=== PATIENT | female | born 1940 | race Caucasian/White ===

== ENCOUNTER → 2018-02-11 | Outpatient (CLI) | payer MEDICARE ==
--- NOTE | 2018-02-11 11:19 | BD ---
EXAMINATION TYPE: Axial Bone Density DATE OF EXAM: 02/11/2018 CLINICAL HISTORY: Height: 61 Weight: 180 FRAX RISK QUESTIONS: Alcohol (3 or more units per day): no Family History (Parent hip fracture): mother did not break hip...no info about father Glucocorticoids (More than 3mos): no (Ex: prednisone, prednisolone, methylprednisolone, dexamethasone, and hydrocortisone). History of Fracture in Adulthood: no Secondary Osteoporosis: 1. Type 1 Diabetes: no 2. Hyperthyroidism: no 3. Menopause before 45: no 4. Malnutrition: no 5. Chronic liver disease: no Rheumatoid Arthritis: no Current Tobacco Use: no RISK FACTORS HISTORY OF: Family History of Osteoporosis: unsure Active: yes Diet low in dairy products/other sources of calcium: no Postmenopausal woman: yes Take estrogen and/or progesterone medications: not now How long: about 15 years Lost more than 2 inches in height since high school: no Frequent falls: no Poor Health: no Hyperparathyroidism: no Adrenal Insufficiency: no MEDICATIONS: Prednisone or other steroids: no Thyroid Medications: no Osteoporosis Medications: no Additional Medications: Vitamin D3, Gemfibrozil, Zyrtec, Aspirin, CoQ10, Areds, Pravastatin, Losartan , Omeprazole, Spironolactone, Fish Oil Calcium Additional History: EXAM MEASUREMENTS: Bone mineral densitometry was performed using the Enomaly System. Bone mineral density as measured about the Lumbar spine is: ----- L1-L4(G/cm2): 1.419 T Score Values are as follows: ----- L2: 2.1 ----- L3: 2.1 ----- L4: 2.4 ----- L1-L4: 2.0 Bone mineral density has: Increased 10.3% since study of: 04/18/2009 Bone mineral density about the R hip (g/cm2): 0.852 Bone mineral density about the L hip (g/cm2): 0.803 T Score values are as follows: -----R Neck: -1.3 -----L Neck: -1.7 -----R Total: -0.6 -----L Total: -0.9 Bone mineral density has: Decreased -1.3% since study of: 04/18/2009 IMPRESSION: Osteopenia (T Score between -2.5 and -1) felt present femoral neck level in both hips. Bone density f elt falsely elevated in the low back due to reactive sclerosis from underlying scoliosis. There is slightly increased risk of fracture and the patient may be considered for treatment. Re-Screen 2-5 years. NOTE: T-SCORE=SD OF THE YOUNG ADULT MEAN.
--- NOTE | 2018-02-11 11:45 | MM ---
Reason for exam: screening (asymptomatic). Last mammogram was performed 1 year and 7 months ago. History: Patient is postmenopausal. Benign left breast needle localization of both breasts, September 14, 2012. Benign left mammotome panel of the left breast, August 03, 2012. Benign right US cyst aspiration of the right breast, May 02, 2009. Took estrogen for 15 years beginning at age 50. Took progesterone for 15 years beginning at age 50. Physical Findings: A clinical breast exam by your physician is recommended on an annual basis and results should be correlated with mammographic findings. MG 3D Screening Mammo W/Cad Bilateral CC and MLO view(s) were taken. Prior study comparison: July 24, 2016, bilateral MG 3d screening mammo w/cad. July 23, 2015, bilateral MG screening mammo w CAD. There are scattered fibroglandular densities. There are benign appearing small round oval circumscribed masses bilaterally waxing and waning over priors most compatible with small cysts. Benign calcifications bilaterally. No suspicious abnormality. ASSESSMENT: Benign, BI-RAD 2 RECOMMENDATION: Routine screening mammogram of both breasts in 1 year.
== END ==
LOC: RADMAMWWP 07:34
PROVIDERS: ATTEND Family Medicine
DX: Z12.31 Encounter for screening mammogram for malignant neoplasm of breast (principal); M85.88 Other specified disorders of bone density and structure, other site
CPT/HCPCS: 77063; 77067; 77080

== ENCOUNTER 2018-07-29 09:17 | Day surgery (SDC) | payer MEDICARE ==
[2018-07-21 09:57] VITALS: BMI 35.5
[~2018-07-29 09:17] MED LIST: ALPRAZolam 0.25 MG TAB PO PRN; ALPRAZolam 0.5 MG TAB PO PRN; ASPIRIN 325 MG TAB PO ONE; ATORVASTATIN 80 MG TAB PO ONE; NITROGLYCERIN SL TABS 0.4 MG TAB SUBLINGUAL PRN; SODIUM CHLORIDE 0.9% 1,000 ML in EMPTY BAG 1 BAG IV ONE
[2018-07-29 10:17] VITALS: PULSE 7; TEMP 97.4
[2018-07-29 10:17] LABS: Basophils # (A) 0.1 k/uL (0-0.2); Basophils % (A) 1 %; Eosinophils # (A) 0.3 k/uL (0-0.7); Eosinophils % (A) 3 %; HCT 43.6 % (34.0-46.0); Lymphocytes # (A) 1.9 k/uL (1.0-4.8); Lymphocytes % (A) 22 %; MCH 28.2 pg (25.0-35.0); MCV 87.9 fL (80.0-100.0); Mean Platelet Volume 6.9; Monocytes # (A) 0.6 k/uL (0-1.0); Monocytes % (A) 7 %; Neutrophils # (A) 5.7 k/uL (1.3-7.7); Neutrophils % (A) 65 %; Platelet Count 287 k/uL (150-450); RBC 4.96 m/uL (3.80-5.40); RDW 13.1 % (11.5-15.5); WBC 8.7 k/uL (3.8-10.6)
[2018-07-29] MEDS ORDERED: fentaNYL (PF) 50 MCG/ML 2 ML AMP ONE (10:18)
[2018-07-29] MEDS ORDERED: LIDOCAINE 1% INJ 10MG/ML (20 ML MDV) ONE (10:19)
[2018-07-29 10:26] LABS: Calcium 9.8 mg/dL (8.4-10.2); Potassium 4.8 mmol/L (3.5-5.1)
[2018-07-29] MEDS ORDERED: SODIUM CHLORIDE 0.9% 1,000 ML IV ONE (10:31)
[2018-07-29] MEDS ORDERED: fentaNYL (PF) 50 MCG/ML 2 ML AMP IV ONE (10:44)
[2018-07-29] MEDS ORDERED: LIDOCAINE 1% INJ 10MG/ML (20 ML MDV) SQ ONE (10:48)
[2018-07-29] MEDS ORDERED: HEPARIN SODIUM 1,000 UN/ML (10ML VL) IV ONE (10:57)
[2018-07-29] MEDS ORDERED: HEPARIN SODIUM 1,000 UN/ML (10ML VL) ONE (11:05)
[2018-07-29] MEDS ORDERED: ADENOSINE 90 MG in SODIUM CHLORIDE 0.9% 60 ML IVP ONE (11:13)
[2018-07-29] MEDS ORDERED: IOPAMIDOL-370 100ML BTL INJ ONE (11:18)
[2018-07-29] MEDS ORDERED: IOPAMIDOL-370 125ML BTL INJ ONE (11:18)
[2018-07-29] MEDS ORDERED: RX INFO: IV CONTRAST WAS GIVEN 1 EACH MISC MISCELLANE PRN (11:37)
[2018-07-29] MEDS ORDERED: SODIUM CHLORIDE 0.9% 1,000 ML IV SCH (11:45)
[2018-07-29 13:37] LABS: Albumin 4.1 g/dL (3.5-5.0); Total Bilirubin 0.6 mg/dL (0.2-1.3); Total Protein 7.5 g/dL (6.3-8.2)
--- NOTE | 2018-07-29 15:15 | CC ---
CARDIAC CATHETERIZATION REPORT Mrs. Delvalle is a 77-year-old female with history of coronary artery disease in 2009, history of hypertension, hyperlipidemia, who is followed by Dr. Mathew, recently has been complaining of dyspnea on exertion, underwent myocardial perfusion imaging that revealed evidence of inducible ischemia in inferoseptal wall. Because of her symptoms, recommendation made regarding cardiac catheterization. The procedures, risks and complications were discussed with the patient who is in full understanding and agreement. PROCEDURE: Patient was brought to the [facility] in a fasting semi-sedated state after receiving fentanyl and Benadryl and achieving moderate conscious sedated state. Using Xylocaine anesthesia and Seldinger technique, a 6-Kazakh sheath was introduced in the right femoral artery. Selective right and left angiography performed with 6-Kazakh 4 bend right and left Víctor catheter, multiple views of the coronary artery including hemiaxial views obtained. Following that, a 6-Kazakh tight pigtail catheter was introduced in the left ventricle and pressures were calculated. Following that, a 6- Kazakh FL4 guiding catheter was introduced into the system and after cannulating the left main, a Doppler flow wire was introduced and positioned in the left circumflex and fractional flow reserve was calculated after infusion of IV adenosine per protocol as well as IFR was calculated. At the end of the procedure, catheter and sheaths were removed. Hemostasis was obtained with deployment of an Angio-Seal. There was no immediate complication. Patient is returned to her room in stable condition. Of note, the patient received 5000 units of intravenous heparin. FINDINGS: FLUOROSCOPY: There was calcification involving the left anterior descending artery territory. LEFT MAIN: This is a large-sized vessel, bifurcating into left circumflex and left anterior descending artery. The left main coronary artery in mid segment has a 40% plaque. The rest of the vessel has no high-grade stenosis. LEFT ANTERIOR DESCENDING ARTERY: This vessel is subtotally occluded proximally with no antegrade flow. There is no significant antegrade flow. LEFT CIRCUMFLEX: This is a nondominant vessel, large in caliber, giving rise to 3 obtuse marginal branch. The left circumflex as well as branches have no evidence of high-grade stenosis. RIGHT CORONARY ARTERY: This is a large dominant vessel, bifurcating distally into PDA and posterolateral segment and branches. The right coronary has mild intimal disease without any evidence of high-grade stenosis. SAPHENOUS VEIN GRAFT TO THE DIAGONAL BRANCH: The proximal distal anastomotic sites are patent. The flow into the diagonal branch is brisk. There is retrograde flow into the LAD with no obstructive disease. SMITH: The SMITH to LAD is arthritic with no significant antegrade flow. FRACTIONAL FLOW RESERVE: Fractional flow reserve across the left main was 94% and IFR was 1. IMPRESSION: 1. Borderline significant left main disease. 2. Chronically occluded left anterior descending artery with no significant antegrade flow. 3. Mild disease in the right coronary artery. 4. Patent saphenous vein graft to the diagonal branch with back flow into the left anterior descending artery. 5. Arthritic SMITH to the left anterior descending artery. 6. Non-hemodynamic significant fractional flow reserve across the left main by fractional flow reserve and IFR. RECOMMENDATION: In view of finding anatomy, I would recommend to continue medical therapy with aggressive risk modifications being initiated. Those findings and recommendation were discussed with the patient and her family and they are in full understanding and agreement. DURATION OF THE PROCEDURE: 36 minutes. MMJOSSELYNL / ANAN: [id number] /
[2018-07-29 17:41] VITALS: RESP 20
[2018-07-29 17:45] VITALS: BP 119/56
[2018-07-29] MEDS ORDERED: ATORVASTATIN 80 MG TAB PO SCH (21:00)
[2018-07-29] MEDS ORDERED: NON-FORMULARY DRUG (Aspirin Ec 81 MG) PO SCH (21:00)
[2018-07-29] MEDS ORDERED: CARVEDILOL 3.125 MG TAB PO SCH (21:00)
[2018-07-30] MEDS ORDERED: GEMFIBROZIL 600 MG PO SCH (09:00)
[2018-07-30] MEDS ORDERED: SPIRONOLACTONE 25 MG TAB PO SCH (09:00)
[2018-07-30] MEDS ORDERED: LOSARTAN 25 MG TAB PO SCH (09:00)
[2018-07-30] MEDS ORDERED: NON-FORMULARY DRUG (Calcium Carbonate/Vitamin D3 [Calcium 600-Vit D3 200 Tablet] 1 TAB) PO SCH (09:00)
[2018-07-30] MEDS ORDERED: NON-FORMULARY DRUG (Omeprazole [Omeprazole] 20 MG) PO SCH (09:00)
[2018-07-30] MEDS ORDERED: NON-FORMULARY DRUG (Omega-3 Fatty Acids/Fish Oil [Fish Oil 1,000 Mg Softgel] 1 EACH) PO SCH (09:00)
[2018-07-30] MEDS ORDERED: NON-FORMULARY DRUG (Ubidecarenone [Co Q-10] 100 MG) PO SCH (09:00)
[2018-07-30] MEDS ORDERED: NON-FORMULARY DRUG (Cetirizine Hcl [Zyrtec] 10 MG) PO SCH (09:00)
[2018-07-30] MEDS ORDERED: CHOLECALCIFEROL 1,000 UNIT TAB PO SCH (09:00)
[2018-07-30] MEDS ORDERED: NON-FORMULARY DRUG (Vit C/E/Zn/Coppr/Lutein/Zeaxan [Preservision Areds 2 Softgel] 1 EACH) PO SCH (09:00)
== END 2018-07-29 16:35 | disposition home or self-care (01) ==
LOC: CATHCVL 09:17
PROVIDERS: ATTEND Internal Medicine Interventional Cardiology
DX: I25.10 Atherosclerotic heart disease of native coronary artery without angina pectoris (principal); I25.84 Coronary atherosclerosis due to calcified coronary lesion; I10 Essential (primary) hypertension; Z72.0 Tobacco use; I25.5 Ischemic cardiomyopathy; E78.5 Hyperlipidemia, unspecified; Z95.1 Presence of aortocoronary bypass graft; Z79.82 Long term (current) use of aspirin; Z79.51 Long term (current) use of inhaled steroids; Z79.899 Other long term (current) drug therapy; Z88.5 Allergy status to narcotic agent
CPT/HCPCS: 93571; 93459; 80061; 80053; 85025; C1760; C1894; C1769; J2001; J3010; J1644; J0153; Q9967 ×2

== ENCOUNTER → 2019-03-04 | Outpatient (CLI) | payer MEDICARE ==
--- NOTE | 2019-03-08 10:12 | MM ---
Reason for exam: screening (asymptomatic). Last mammogram was performed 1 year and 1 month ago. History: Patient is postmenopausal. Benign left breast needle localization of both breasts, September 14, 2012. Benign left mammotome panel of the left breast, August 03, 2012. Benign right US cyst aspiration of the right breast, May 02, 2009. Took estrogen for 15 years beginning at age 50. Took progesterone for 15 years beginning at age 50. Physical Findings: A clinical breast exam by your physician is recommended on an annual basis and results should be correlated with mammographic findings. MG 3D Screening Mammo W/Cad Bilateral CC and MLO view(s) were taken. Prior study comparison: February 11, 2018, bilateral MG 3d screening mammo w/cad. July 24, 2016, bilateral MG 3d screening mammo w/cad. There are scattered fibroglandular densities. There is chronic nodularity bilaterally. Scattered vascular and oil cyst calcifications bilaterally. No significant changes when compared with prior studies. ASSESSMENT: Benign, BI-RAD 2 RECOMMENDATION: Routine screening mammogram of both breasts in 1 year.
== END ==
LOC: RADMAMWWP 14:07
PROVIDERS: ATTEND Family Medicine
DX: Z12.31 Encounter for screening mammogram for malignant neoplasm of breast (principal)
CPT/HCPCS: 77063; 77067

== ENCOUNTER 2019-03-24 05:54 | Day surgery (SDC) | payer MEDICARE ==
[2019-03-24] MEDS ORDERED: LIDOCAINE 1% 20 ML VIAL (10MG/ML) FOR IV START INTRADERMA PRN (06:05)
[2019-03-24] MEDS ORDERED: ceFAZolin IN SWFI 2 GM/20 ML SYRINGE IVP ONE (06:30)
[2019-03-24] MEDS: SODIUM CHLORIDE 0.9% 1,000 ML IV SCH (06:34)
[2019-03-24] MEDS ORDERED: MIDAZOLAM 2 MG/2 ML VIAL ONE (07:25)
[2019-03-24] MEDS ORDERED: PROPOFOL 10 MG/ML 20 ML VIAL IV ONE (07:25)
[2019-03-24] MEDS ORDERED: fentaNYL (PF) 50 MCG/ML 2 ML AMP ONE (07:25)
[2019-03-24] MEDS ORDERED: PHENYLEPHRINE-0.9% NACL SYG 1 MG/10 ML SYRINGE ONE (07:25)
[2019-03-24] MEDS ORDERED: IOPAMIDOL-250 50ML BTL IV ONE (07:36)
[2019-03-24] MEDS ORDERED: LIDOCAINE 1% INJ 10MG/ML (20 ML MDV) ONE ×2 (07:40)
[2019-03-24] MEDS ORDERED: LIDOCAINE 1% INJ 10MG/ML (20 ML MDV) IV ONE (08:08)
[2019-03-24] MEDS: ceFAZolin 1,000 MG in SODIUM CHLORIDE 0.9% IRRIGATIO 250 ML IRRIGATION ONE ×2 (08:48→08:50)
[2019-03-24] MEDS ORDERED: ACETAMINOPHEN IV (For NPO) 1,000 MG in EMPTY BAG 1 BAG IVPB ONE (09:22)
[2019-03-24] MEDS ORDERED: ACETAMINOPHEN TAB 325 MG TAB PO PRN (09:22)
[2019-03-24] MEDS ORDERED: HYDROcodone/APAP 5-325MG 1 EACH TAB PO PRN (09:22)
--- NOTE | 2019-03-24 09:41 | P.PRLE ---
RE: Mita Delvalle Dear Carmelina Fan underwent implantation of a single-chamber ICD for primary prevention of sudden cardiac . She has ischemic cardiomyopathy with a left ventricular ejection fraction of 35% with class II heart failure symptoms and on appropriate guideline directed medical treatment She has severe coronary artery disease and I would like to keep her LDL well below 50 mg/dL In addition heart failure medications should be maximized as tolerated Thank you for entrusting me with the care of the patient Warm regards Sincerely Jared Mathew
--- NOTE | 2019-03-24 10:20 | CE ---
CARDIAC ELECTROPHYSIOLOGY REPORT Mita Delvalle is a patient of Dr. Carmelina Knutson and Dr. Mathew who has severe ischemic cardiomyopathy whose left ventricular ejection fraction has not improved beyond 35% despite medical treatment and revascularization. She has had an old myocardial infarction, inferior wall, as well as lateral wall. She has an atretic SMITH graft. She is status post coronary artery bypass grafting. She is on guideline directed medical treatment. She underwent single-chamber ICD implantation for primary prevention of sudden cardiac . Patient was brought to the EP lab in a fasting state. Written informed consent was obtained prior to the procedure. Perioperative antibiotics were administered. The left pectoral area was prepped and draped as per protocol and 1% lidocaine was used for local anesthesia. A 4 cm incision was made parallel to the deltopectoral groove, about 1.5 cm medial to it and the incision was carried down to the level of the pectoralis muscle. A subfascial pocket was made. Hemostasis was assured. The left axillary vein was accessed at a single point and via an appropriately-sized introducer sheath, a single coil ICD lead was implanted and screwed in the mid RV septum. This was a [employer]isure, model #LDV741N, serial #[id number]. The R-waves were 21.6 mV, pacing impedance 880 ohms, pacing threshold 0.5 V at 0.5 milliseconds. Current protocol was followed. The lead was secured to the underlying pectoralis fascia using 2 nonabsorbable sutures. Pocket was irrigated with antibiotic solution. Lead was connected to the generator, [employer] model #SA4183-83L, serial #[id number]. The lead and generator were then placed in subfascial pocket. The wound was closed in 3 layers and dressed per protocol. Left upper extremity venogram. The left upper extremity venogram was performed prior to the procedure. Ten mL of dye was injected in the left upper extremity and cinefluoroscopy was performed and a patent left axillary and left subclavian venous system was noted. DEFIBRILLATION LEVEL TESTING UNDER ANESTHESIA: A DC fibber shock was used to induce ventricular fibrillation. This was adequately and appropriately detected at least sensitivity and successfully defibrillated with a 10 joule shock, type 2 conversion. The charge time was 1.8 seconds. Shocking impedance was 74 ohms. There was no post shock noise. The device was then programmed according to the MADIT-RIT programming with backup VVI pacing at 40 beats a minute. Appropriate antitachycardia pacing, cardioversion and defibrillations were programmed. RESULTS: Successful single-chamber ICD implant with DFT at around 10 joules. PLAN: IV antibiotics. Device interrogation tomorrow. Chest x-ray tomorrow and likely discharge tomorrow and follow up in the office within a week. FUTURE PLAN: Watch for percentage of PVCs. If significant, then consider a PVC ablation. Maximize heart failure medications further, as tolerated. MMODL / IJN: [id number] /
[2019-03-24] MEDS ORDERED: ISOSORBIDE MONONITRATE ER 30 MG TAB.ER.24H PO SCH (12:00)
[2019-03-24 13:16] VITALS: RESP 18
[2019-03-24 13:34] VITALS: BMI 35.5
[2019-03-24] MEDS: ceFAZolin IN SWFI 2 GM/20 ML SYRINGE IVP SCH ×2 (13:35→21:00)
[2019-03-24] MEDS: LACTATED RINGERS 1,000 ML IV SCH (16:49)
[2019-03-24] MEDS: CARVEDILOL 6.25 MG TAB PO SCH (17:17)
[2019-03-24] MEDS: ASPIRIN 81 MG PO SCH (20:59)
[2019-03-24] MEDS ORDERED: PANTOPRAZOLE 40 MG TABLET PO SCH (21:00)
[2019-03-24] MEDS ORDERED: ATORVASTATIN 80 MG TAB PO SCH (21:00)
[2019-03-24] MEDS ORDERED: LOSARTAN 25 MG TAB PO SCH (21:00)
[2019-03-25] MEDS: ceFAZolin IN SWFI 2 GM/20 ML SYRINGE IVP SCH ×2 (02:26→09:13)
--- NOTE | 2019-03-25 07:38 | XR ---
EXAMINATION TYPE: XR chest 2V DATE OF EXAM: 03/25/2019 COMPARISON: 06/05/2016 HISTORY: 78-year-old female lead placement check TECHNIQUE: PA and lateral views FINDINGS: Left anterior chest wall AICD generator with right ventricular lead. Median sternotomy wires are pres ent with post-CABG clips. Heart normal size. Mild interstitial prominence of the chronic appearance. No consolidation or pleural effusion. No appreciable pneumothorax. IMPRESSION: Left-sided pacemaker generator with single right ventricular AICD lead. Chronic changes without acute process seen.
--- NOTE | 2019-03-25 07:48 | P.DS ---
Providers Attending physician: Jared Mathew Primary care physician: [facility] Course: Mita is doing well. She has no chest discomfort no discomfort over the ICD site Minimal soakage no hematoma No dizziness lightheadedness chest discomfort palpitations 98.1F, pulse rate in the 70s, blood pressure 122/78 mmHg Breath sounds are clear no rhonchi no crackles Heart sounds S1 and S2 are normal no murmurs or gallops no rub Abdomen soft Extremities warm no edema impression Ischemic cardio myopathy with severe LV dysfunction and class II CHF, CAD Status post single chamber ICD yesterday for primary prevention of sudden cardiac Plan Discharge home after completion of IV antibiotics device interrogation and chest x-ray Follow-up with Dr. Zimmerman and device clinic within a week Plan - Discharge Summary Discharge Rx Participant: No New Discharge Prescriptions: Continue RX: Cholecalciferol [Vitamin D3 (25 Mcg = 1000 Iu)] 5,000 unit PO DAILY RX: Cetirizine HCl [Zyrtec] 10 mg PO DAILY RX: Aspirin EC [Ecotrin Low Dose] 81 mg PO BID RX: Losartan Potassium 25 mg PO HS RX: Gemfibrozil 600 mg PO DAILY RX: Omeprazole 20 mg PO HS RX: Ubidecarenone [Co Q-10] 100 mg PO DAILY RX: Atorvastatin [Lipitor] 80 mg PO HS RX: Spironolactone [Aldactone] 25 mg PO DAILY RX: Carvedilol [Coreg] 6.25 mg PO BID RX: Vit C/E/Zn/Coppr/Lutein/Zeaxan [Preservision Areds 2 Softgel] 1 each PO DAILY RX: Roebling-3 Fatty Acids/Fish Oil [Fish Oil 1,000 mg Softgel] 1,000 mg PO HS RX: Calcium Carbonate [Calcium] 600 mg PO HS RX: Ezetimibe [Zetia] 10 mg PO DAILY RX: Isosorbide Mononitrate ER [Imdur] 30 mg PO DAILY@1200 Discharge Medication List RX: Aspirin EC [Ecotrin Low Dose] 81 mg PO BID 06/05/16 [History] RX: Cetirizine HCl [Zyrtec] 10 mg PO DAILY 06/05/16 [History] RX: Cholecalciferol [Vitamin D3 (25 Mcg = 1000 Iu)] 5,000 unit PO DAILY 06/05/16 [History] RX: Gemfibrozil 600 mg PO DAILY 06/05/16 [History] RX: Losartan Potassium 25 mg PO HS 06/05/16 [History] RX: Omeprazole 20 mg PO HS 06/05/16 [History] RX: Atorvastatin [Lipitor] 80 mg PO HS 07/21/18 [History] RX: Carvedilol [Coreg] 6.25 mg PO BID 07/21/18 [History] RX: Roebling-3 Fatty Acids/Fish Oil [Fish Oil 1,000 mg Softgel] 1,000 mg PO HS 07/21/18 [History] RX: Spironolactone [Aldactone] 25 mg PO DAILY 07/21/18 [History] RX: Ubidecarenone [Co Q-10] 100 mg PO DAILY 07/21/18 [History] RX: Vit C/E/Zn/Coppr/Lutein/Zeaxan [Preservision Areds 2 Softgel] 1 each PO DAILY 07/21/18 [History] RX: Calcium Carbonate [Calcium] 600 mg PO HS 03/18/19 [History] RX: Ezetimibe [Zetia] 10 mg PO DAILY 03/18/19 [History] RX: Isosorbide Mononitrate ER [Imdur] 30 mg PO DAILY@1200 03/18/19 [History] Follow up Appointment(s)/Referral(s): Jared Mathew MD [STAFF PHYSICIAN] - 1 Week (Device clinic follow-up within 7 days Follow-up with Dr. Zimmerman/Apryl Allen/Tamika Wallace within 3 months) Activity/Diet/Wound Care/Special Instructions: PATIENT EDUCATION MATERIAL Instructions following a heart rhythm device implant. 1. Keep dressing DRY for 5 DAYS. You may cover the area with Saran or Cling Wrap, prior to a shower. 2. The dressing will be removed in the Device Clinic at [facility]. Absorbable sutures were used to close the wound. 3. Avoid raising the left arm above the shoulder level. 4 week restriction 4. Avoid arm movements, like backscratching, rubbing the head, or pulling on a cord. 4 weeks restriction 5. Gentle range of motion movements of the shoulder, closest to the incision should be performed to avoid a frozen shoulder. (Pendulum exercises of the shoulder) 6. The opposite arm may be used freely. 7. Avoid driving for 7 days. 8. Avoid activities such as golfing, swimming, weed whacking, lifting more than 10 pounds weight, bowling, gymnastics and weight training/lifting. (6 weeks restriction) 9. Activities such as wood chopping with an axe, pull-ups in the gymnasium, power lifting, arc-welding, being close to home induction cooktops will always be a problem. 10. Arm sling is only a reminder not to raise the arm above the head. You do not need to keep the arm completely immobilized. Your free to move the arm and use it and for normal activities. In case of any problems, please call [facility], Ryan Stevenson, @ [phone], Attention: Device Clinic Device clinic follow-up in 5 days Follow-up with primary district leader in 2-3 months No changes in her medications Follow-up with Dr. Zimmerman/Apryl Allen/Tamika Wallace in 3 months
[2019-03-25] MEDS: LACTATED RINGERS 1,000 ML IV SCH (07:52)
[2019-03-25] MEDS: SODIUM CHLORIDE 0.9% 1,000 ML IV SCH (07:52)
[2019-03-25 07:53] VITALS: BP 126/75; PULSE 78; TEMP 98.2
[2019-03-25] MEDS ORDERED: FENOFIBRATE 160 MG TAB PO SCH (09:00)
[2019-03-25] MEDS ORDERED: EZETIMIBE 10 MG TAB PO SCH (09:00)
[2019-03-25] MEDS ORDERED: SPIRONOLACTONE 25 MG TAB PO SCH (09:00)
[2019-03-25] MEDS: CARVEDILOL 6.25 MG TAB PO SCH (09:13)
[2019-03-25] MEDS: ASPIRIN 81 MG PO SCH (09:13)
== END 2019-03-25 11:21 ==
LOC: CATHEP 05:54 → 1SOBS 09:15 → CATHEP 03-25 11:21
PROVIDERS: ATTEND Internal Medicine Clinical Cardiac Electrophysiology
DX: I25.5 Ischemic cardiomyopathy (principal); I11.0 Hypertensive heart disease with heart failure; I50.22 Chronic systolic (congestive) heart failure; I49.3 Ventricular premature depolarization; I25.118 Atherosclerotic heart disease of native coronary artery with other forms of angina pectoris; Z95.1 Presence of aortocoronary bypass graft; I25.2 Old myocardial infarction; E78.5 Hyperlipidemia, unspecified; K21.9 Gastro-esophageal reflux disease without esophagitis; H91.90 Unspecified hearing loss, unspecified ear; H35.30 Unspecified macular degeneration; Z87.891 Personal history of nicotine dependence; Z97.2 Presence of dental prosthetic device (complete) (partial); Z79.82 Long term (current) use of aspirin; Z79.899 Other long term (current) drug therapy; Z88.5 Allergy status to narcotic agent
CPT/HCPCS: 33249; 93641; 71046; C1769 ×3; C1892; C1722; C1777; J2250; J0690 ×3; J2001; J3010; J2370; J2704; Q9966

== ENCOUNTER 2024-04-20 11:54 | Emergency (ER) | payer MEDICARE ==
[2024-04-20 12:03] VITALS: TEMP 98
--- NOTE | 2024-04-20 12:36 | ED ---
General Adult HPI - General Chief complaint: Weakness Stated complaint: weakness Time Seen by Provider: 04/20/24 11:55 Source: patient Mode of arrival: EMS - History of Present Illness Initial comments: Dictation was produced using Virtual [employer] dictation software. please excuse any gramma tical, word or spelling errors. Chief Complaint: 83-year-old female presents to the ER for weakness History of Present Illness: Patient 83-year-old female history of coronary artery disease and CABG presents to the ER for 2 to 3 days of weakness. Patient states she gets dizzy whenever she tries to stand up. Patient denies any fever or constitutional symptoms. She was brought in from home by EMS. Patient feels so weak that she is unable to perform activities of daily living. Patient den ies any pain complaints. The ROS documented in this emergency department record has been reviewed and confirmed by me. Those systems with pertinent positive or negative responses have been documented in the HPI. All other systems are other negative and/or noncontributory. - Related Data Home Medications Medication Instructions Recorded Confirmed Aspirin EC [Ecotrin Low Dose] 81 mg PO BID 06/05/16 03/24/19 Cetirizine HCl [Zyrtec] 10 mg PO DAILY 06/05/16 03/24/19 Cholecalciferol [Vitamin D3 (25 5,000 unit PO DAILY 06/05/16 03/24/19 Mcg = 1000 Iu)] Losartan Potassium 25 mg PO HS 06/05/16 03/24/19 Omeprazole 20 mg PO HS 06/05/16 03/24/19 gemfibroziL [Gemfibrozil] 600 mg PO DAILY 06/05/16 03/24/19 Atorvastatin [Lipitor] 80 mg PO HS 07/21/18 03/24/19 [place]-3 Fatty Acids/Fish Oil [Fish 1,000 mg PO HS 07/21/18 03/24/19 Oil 1,000 mg Softgel] Spironolactone [Aldactone] 25 mg PO DAILY 07/21/18 03/24/19 Ubidecarenone [Co Q-10] 100 mg PO DAILY 07/21/18 03/24/19 Vit C/E/Zn/Coppr/Lutein/Zeaxan 1 each PO DAILY 07/21/18 03/24/19 [Preservision Areds 2 Softgel] carvediloL [Coreg] 6.25 mg PO BID 07/21/18 03/24/19 Calcium Carbonate [Calcium] 600 mg PO HS 03/18/19 03/24/19 Ezetimibe [Zetia] 10 mg PO DAILY 03/18/19 03/24/19 Isosorbide Mononitrate ER [Imdur] 30 mg PO DAILY@1200 03/18/19 03/24/19 Allergies Allergy/AdvReac Type Severity Reaction Status Date / Time morphine Allergy Unknown Nausea & Verified 04/20/24 12:02 Vomiting & Diarrhea Review of Systems ROS Statement: Those systems with pertinent positive or pertinent negative responses have been documented in the HPI. ROS Other: All systems not noted in ROS Statement are negative. Past Medical History Past Medical History: Coronary Artery Disease (CAD), Eye Disorder, GERD/Reflux, Hearing Disorder / Deafness, Hyperlipidemia, Hypertension Additional Past Medical History / Comment(s): CMP, SHORTNESS OF BREATH W/ ACTIVITY. WET MACULAR DEGENERATION LT EYE, GETS NEEDLE Q6 WKS. SEE DR ROY H&P. History of Any Multi-Drug Resistant Organisms: None Reported Past Surgical History: Coronary Bypass/CABG, Heart Catheterization, Hernia Repair, Tubal Ligation Additional Past Surgical History / Comment(s): DOUBLE CABG 2009 EST. HIATAL HERNIA REPAIR. Past Anesthesia/Blood Transfusion Reactions: No Reported Reaction Past Psychological History: No Psychological Hx Reported Smoking Status: Former smoker Past Alcohol Use History: Rare Past Drug Use History: None Reported - Past Family History Brother(s) Family Medical History: Cancer Sister(s) Family Medical History: Cancer General Exam - General Exam Comments Initial Comments: PHYSICAL EXAM: General Impression: Alert and oriented x3, not in acute distress HEENT: Normocephalic atraumatic, extra-ocular movements intact, pupils equal and reactive to light bilaterally, mucous membranes moist. Cardiovascular: Heart regular rate and rhythm Chest: Able to complete full sentences, no retractions, no tachypnea Abdomen: abdomen soft, non-tender, non-distended, no organomegaly Musculoskeletal: Pulses present and equal in all extremities, no peripheral nirav a Motor: no focal deficits noted Neurological: CN II-XII grossly intact, no focal motor or sensory deficits noted Skin: Intact with no visualized rashes Psych: Normal affect and mood Course Vital Signs 04/20/24 12:00 Temperature 98 F Pulse Rate 60 Respiratory 20 Rate Blood Pressure 152/77 O2 Sat by Pulse 93 L Oximetry EKG Findings - EKG Comments: EKG Findings:: My EKG interpretation: Ventricular rate 59, sinus bradycardia,. 179, cures 97, QTc 415. No ME prolongation, no QTC prolongation, no ST or T-wave changes noted. Overall, this EKG is unremarkable Medical Decision Making - Medical Decision Making Was pt. sent in by a medical professional or institution (, PA, [facility], urgent care, hospital, or [facility]...) When possible be specific @ -No Did you speak to anyone other than the patient for history (EMS, parent, family, police, friend...)? What history was obtained from this source @ -No Did you review nursing and triage notes (agree or disagree)? Why? @ -I reviewed and agree with nursing and triage notes Were old charts reviewed (outside hosp., previous admission, EMS record, old EKG, old radiological studies, urgent care reports/EKG's, [facility] records)? Report findings @ -No old charts were reviewed Differential Diagnosis (chest pain, altered mental status, abdominal pain women, abdominal pain men, vaginal bleeding, musculoskeletal, weakness, fever, dyspnea, syncope, headache, dizziness, GI bleed, back pain, seizure, CVA, palpatations, mental health)? @ -Differential Weakness: Hypoglycemia, shock, sepsis, hyponatremia, anemia, infection, AR, ETOH, adverse medicine reaction, overdose, stroke, this is not meant to be an all-inclusive list. EKG interpreted by me (3pts min.). @ -See above X-rays interpreted by me (1pt min.). @ -Chest x-ray shows no acute processes CT interpreted by me (1pt min.). @ -None done U/S interpreted by me (1pt. min.). @ -None done What testing was considered but not performed or refused? (CT, X-rays, U/S, labs)? Why? @ -None What meds were considered but not given or refused? Why? @ -None Was smoking cessation discussed for >3mins.? @ -No Were there social determinants of health that impacted care today? How? (Homelessness, low income, unemployed, alcoholism, drug addiction, transportation, low edu. Level, literacy, decrease access to med. care, half-way, rehab)? @ -No Was there de-escalation of care discussed even if they declined (Discuss DNR or withdrawal of care, Hospice)? DNR status @ -No What co-morbidities impacted this encounter? (DM, HTN, Smoking, COPD, CAD, Cancer, CVA, ARF, Chemo, Hep., AIDS, mental health diagnosis, sleep apnea, morbid obesity)? @ -None Was patient admitted / discharged? Hospital course, mention meds given and route, prescriptions, significant lab abnormalities, going to OR and other pertinent info. @ -83-year-old female presents to the emergency department for multiple days of weakness. Patient states that she has been feeling slightly lightheaded as well. Vital signs on upon arrival are within acceptable limits. Patient physical examination is unremarkable. Laboratory evaluation shows normal CBC, coag panel is negative. Metabolic panel shows mild acidosis nongap. Elevated renal function with a creatinine of 1.3. Glucose 108. Magnesium 1.5. Viral testing negative. Chest x-ray is nonacute. Patient given IV fluids and magnesium. Disposition options were discussed. Patient states she wants to be discharged after IV fluids and magnesium. Believe this is reasonable disposition given that patient is well-appearing at the bedside. She also states she can follow-up closely with her primary care doctor. Did you discuss the management of the patient with other professionals (professionals i.e. , PA, [facility], lab, RT, psych nurse, drug abuse social worker, internal affairs investigator, teacher, facilities officer, case monitor)? Give summary @ -No Was critical care preformed (if so, how long)? @ -No Undiagnosed new problem with uncertain prognosis? @ -No Drug Therapy requiring intensive monitoring for toxicity (Heparin, Nitro, Insulin, Cardizem)? @ -No Were any procedures done? @ -No Diagnosis/symptom? Acute, or Chronic, or Acute on Chronic? Uncomplicated (without systemic symptoms) or Complicated (systemic symptoms)? @ -Dehydration Side effects of treatment? @ -No Exacerbation, Progression, or Severe Exacerbation? @ -No Poses a threat to life or bodily function? How? (Chest pain, USA, AR, pneumonia, PE, COPD, DKA, ARF, appy, cholecystitis, CVA, Diverticulitis, Homicidal, S uicidal, threat to staff... and all critical care pts) @ -No - Lab Data Result diagrams: 04/20/24 12:51 04/20/24 12:51 Lab Results 04/20/24 04/20/24 04/20/24 Range/Units 12:51 12:51 12:51 WBC 7.8 (3.8-10.6) k/uL RBC 4.18 (3.80-5.40) m/uL Hgb 12.6 (11.4-16.0) gm/dL Hct 38.4 (34.0-46.0) % MCV 91.9 (80.0-100.0) fL MCH 30.2 (25.0-35.0) pg MCHC 32.9 (31.0-37.0) g/dL RDW 12.9 (11.5-15.5) % Plt Count 306 (150-450) k/uL MPV 7.6 Neutrophils % 72 % Lymphocytes % 17 % Monocytes % 6 % Eosinophils % 3 % Basophils % 1 % Neutrophils # 5.7 (1.3-7.7) k/uL Lymphocytes # 1.3 (1.0-4.8) k/uL Monocytes # 0.4 (0-1.0) k/uL Eosinophils # 0.2 (0-0.7) k/uL Basophils # 0.1 (0-0.2) k/uL PT 11.4 (10.0-12.5) sec INR 1.0 (<1.2) APTT 29.3 (22.0-30.0) sec Sodium 138 (137-145) mmol/L Potassium 5.2 H (3.5-5.1) mmol/L Chloride 112 H (98-107) mmol/L Carbon Dioxide 16 L (22-30) mmol/L Anion Gap 10 mmol/L BUN 28 H (7-17) mg/dL Creatinine 1.30 H (0.52-1.04) mg/dL Est GFR (CKD-EPI)AfAm 44 (>60 ml/min/1.73 sqM) Est GFR (CKD-EPI)NonAf 38 (>60 ml/min/1.73 sqM) Glucose 108 H (74-99) mg/dL Calcium 9.8 (8.4-10.2) mg/dL Magnesium 1.5 L (1.6-2.3) mg/dL Total Bilirubin 0.8 (0.2-1.3) mg/dL AST 25 (14-36) U/L ALT 10 (4-34) U/L Alkaline Phosphatase 66 (38-126) U/L Total Protein 7.0 (6.3-8.2) g/dL Albumin 4.4 (3.5-5.0) g/dL Influenza Type A (PCR) (Not Detectd) Influenza Type B (PCR) (Not Detectd) RSV (PCR) (Not Detectd) SARS-CoV-2 (PCR) (Not Detectd) 04/20/24 Range/Units 12:51 WBC (3.8-10.6) k/uL RBC (3.80-5.40) m/uL Hgb (11.4-16.0) gm/dL Hct (34.0-46.0) % MCV (80.0-100.0) fL MCH (25.0-35.0) pg MCHC (31.0-37.0) g/dL RDW (11.5-15.5) % Plt Count (150-450) k/uL MPV Neutrophils % % Lymphocytes % % Monocytes % % Eosinophils % % Basophils % % Neutrophils # (1.3-7.7) k/uL Lymphocytes # (1.0-4.8) k/uL Monocytes # (0-1.0) k/uL Eosinophils # (0-0.7) k/uL Basophils # (0-0.2) k/uL PT (10.0-12.5) sec INR (<1.2) APTT (22.0-30.0) sec Sodium (137-145) mmol/L Potassium (3.5-5.1) mmol/L Chloride (98-107) mmol/L Carbon Dioxide (22-30) mmol/L Anion Gap mmol/L BUN (7-17) mg/dL Creatinine (0.52-1.04) mg/dL Est GFR (CKD-EPI)AfAm (>60 ml/min/1.73 sqM) Est GFR (CKD-EPI)NonAf (>60 ml/min/1.73 sqM) Glucose (74-99) mg/dL Calcium (8.4-10.2) mg/dL Magnesium (1.6-2.3) mg/dL Total Bilirubin (0.2-1.3) mg/dL AST (14-36) U/L ALT (4-34) U/L Alkaline Phosphatase (38-126) U/L Total Protein (6.3-8.2) g/dL Albumin (3.5-5.0) g/dL Influenza Type A (PCR) Not Detected (Not Detectd) Influenza Type B (PCR) Not Detected (Not Detectd) RSV (PCR) Not Detected (Not Detectd) SARS-CoV-2 (PCR) Not Detected (Not Detectd) Disposition Clinical Impression: Dehydration Disposition: HOME SELF-CARE Condition: Good Instructions (If sedation given, give patient instructions): Dehydration (ED), Hypomagnesemia (ED) Is patient prescribed a controlled substance at d/c from ED?: No Referrals: Carmelina Knutson MD [Primary Care Provider] - 1-2 days Time of Disposition: 14:23
[2024-04-20 13:18] LABS: Basophils # (A) 0.1 k/uL (0-0.2); Basophils % (A) 1 %; Eosinophils # (A) 0.2 k/uL (0-0.7); Eosinophils % (A) 3 %; HCT 38.4 % (34.0-46.0); HGB 12.6 gm/dL (11.4-16.0); Lymphocytes # (A) 1.3 k/uL (1.0-4.8); Lymphocytes % (A) 17 %; MCH 30.2 pg (25.0-35.0); MCHC 32.9 g/dL (31.0-37.0); MCV 91.9 fL (80.0-100.0); Mean Platelet Volume 7.6; Monocytes # (A) 0.4 k/uL (0-1.0); Monocytes % (A) 6 %; Neutrophils # (A) 5.7 k/uL (1.3-7.7); Neutrophils % (A) 72 %; Platelet Count 306 k/uL (150-450); RBC 4.18 m/uL (3.80-5.40); RDW 12.9 % (11.5-15.5); WBC 7.8 k/uL (3.8-10.6)
[2024-04-20 13:28] LABS: ALT 10 U/L (4-34); AST 25 U/L (14-36); African American GFR (CKD) 44 (>60 ml/min/1.73 sqM); Albumin 4.4 g/dL (3.5-5.0); Alkaline Phosphatase 66 U/L (38-126); Anion Gap 10 mmol/L; Blood Urea Nitrogen 28 mg/dL (7-17); Calcium 9.8 mg/dL (8.4-10.2); Carbon Dioxide 16 mmol/L (22-30); Chloride 112 mmol/L (98-107); Glucose 108 mg/dL (74-99); Magnesium 1.5 mg/dL (1.6-2.3); Non-African American GFR(CKD) 38 (>60 ml/min/1.73 sqM); Potassium 5.2 mmol/L (3.5-5.1); Sodium 138 mmol/L (137-145); Total Bilirubin 0.8 mg/dL (0.2-1.3)
[2024-04-20 13:30] LABS: Partial Thromboplastin Time 29.3 sec (22.0-30.0); Prothrombin Time 11.4 sec (10.0-12.5)
[2024-04-20] MEDS: MAGNESIUM SULFATE-D5W PMX 1 GM in DEXTROSE/WATER 1 100ML.BAG IVPB SCH (14:33)
[2024-04-20] MEDS: SODIUM CHLORIDE 0.9% 1,000 ML IV STA (14:34)
[2024-04-20 17:07] VITALS: BP 173/98; PULSE 75; RESP 18
== END 2024-04-20 17:08 | disposition home or self-care (01) ==
LOC: SUPCPDRO 11:54 → EC 11:54
DX: E86.0 Dehydration (principal); R00.1 Bradycardia, unspecified; E87.20 Acidosis, unspecified; R94.4 Abnormal results of kidney function studies; Z88.5 Allergy status to narcotic agent; Z87.891 Personal history of nicotine dependence
CPT/HCPCS: 36415; 93005; 80053; 83735; 85025; 85610; 85730; 87636; 71046; 99285; 96365; 96366 ×2; J3475

== ENCOUNTER 2024-12-21 10:56 | Emergency (ER) | payer MEDICARE ==
[2024-12-21 11:06] VITALS: RESP 18
[2024-12-21] MEDS: SODIUM CHLORIDE 0.9% 1,000 ML IV STA ×2 (11:31→14:10)
--- NOTE | 2024-12-21 11:36 | ED ---
Weakness HPI - General Chief complaint: Weakness Stated complaint: weakness Time Seen by Provider: 12/21/24 11:33 Source: patient, EMS, RN notes reviewed Mode of arrival: EMS - History of Present Illness Initial comments: 84-year-old female with history of CAD, CABG, hyperlipidemia, and hypertension presenting for weakness x 3 days with associated dizziness. States she feels g enerally weak and dizzy when she stands up. Admits to black, tarry stools for the past 3 days. She lives at home with her who has dementia and ambulates with a walker. Denies chest pain, admits mild shortness of breath. Denies abdominal pain, fevers, chills, headache, focal deficits. States she had similar symptoms last year and was seen in the ER, diagnosed with dehydration, given IV fluids and magnesium and discharged. Denies blood thinners. 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 - Related Data Home Medications Medication Instructions Recorded Confirmed Aspirin EC [Ecotrin Low Dose] 81 mg PO BID 06/05/16 03/24/19 Cetirizine HCl [Zyrtec] 10 mg PO DAILY 06/05/16 03/24/19 Cholecalciferol [Vitamin D3 (25 5,000 unit PO DAILY 06/05/16 03/24/19 Mcg = 1000 Iu)] Losartan Potassium 25 mg PO HS 06/05/16 03/24/19 Omeprazole 20 mg PO HS 06/05/16 03/24/19 gemfibroziL [Gemfibrozil] 600 mg PO DAILY 06/05/16 03/24/19 Atorvastatin [Lipitor] 80 mg PO HS 07/21/18 03/24/19 [place]-3 Fatty Acids/Fish Oil [Fish 1,000 mg PO HS 07/21/18 03/24/19 Oil 1,000 mg Softgel] Spironolactone [Aldactone] 25 mg PO DAILY 07/21/18 03/24/19 Ubidecarenone [Co Q-10] 100 mg PO DAILY 07/21/18 03/24/19 Vit C/E/Zn/Coppr/Lutein/Zeaxan 1 each PO DAILY 07/21/18 03/24/19 [Preservision Areds 2 Softgel] carvediloL [Coreg] 6.25 mg PO BID 07/21/18 03/24/19 Calcium Carbonate [Calcium] 600 mg PO HS 03/18/19 03/24/19 Ezetimibe [Zetia] 10 mg PO DAILY 03/18/19 03/24/19 Isosorbide Mononitrate ER [Imdur] 30 mg PO DAILY@1200 03/18/19 03/24/19 Allergies Allergy/AdvReac Type Severity Reaction Status Date / Time morphine Allergy Unknown Nausea & Verified 12/21/24 11:06 Vomiting & Diarrhea Review of Systems ROS Statement: Those systems with pertinent positive or pertinent negative responses have been documented in the HPI. ROS Other: All systems not noted in ROS Statement are negative. Past Medical History Past Medical History: Coronary Artery Disease (CAD), Eye Disorder, GERD/Reflux, Hearing Disorder / Deafness, Hyperlipidemia, Hypertension Additional Past Medical History / Comment(s): CMP, SHORTNESS OF BREATH W/ ACTIVITY. WET MACULAR DEGENERATION LT EYE, GETS NEEDLE Q6 WKS. SEE DR ROY H&P. History of Any Multi-Drug Resistant Organisms: None Reported Past Surgical History: Coronary Bypass/CABG, Heart Catheterization, Hernia Repair, Tubal Ligation Additional Past Surgical History / Comment(s): DOUBLE CABG 2009 EST. HIATAL HERNIA REPAIR. Past Anesthesia/Blood Transfusion Reactions: No Reported Reaction Past Psychological History: No Psychological Hx Reported Smoking Status: Former smoker Past Alcohol Use History: Rare Past Drug Use History: None Reported - Past Family History Brother(s) Family Medical History: Cancer Sister(s) Family Medical History: Cancer General Exam General appearance: alert, in no apparent distress Head exam: Present: atraumatic, normocephalic, normal inspection Eye exam: Present: normal appearance, PERRL, EOMI. Absent: scleral icterus, c onjunctival injection, periorbital swelling ENT exam: Present: normal exam, normal oropharynx, mucous membranes moist Neck exam: Present: normal inspection. Absent: tenderness, meningismus, lymphadenopathy Respiratory exam: Present: normal lung sounds bilaterally. Absent: respiratory distress, wheezes, rales, rhonchi, stridor Cardiovascular Exam: Present: regular rate, normal rhythm, normal heart sounds. Absent: systolic murmur, diastolic murmur, rubs, gallop, clicks GI/Abdominal exam: Present: soft, normal bowel sounds, other (Rectal exam chaperoned by RN Mindy, reveals large amount of black, tarry stool). Absent: distended, tenderness, guarding, rebound, rigid Neurological exam: Present: alert, oriented X3, CN II-XII intact Psychiatric exam: Present: normal affect, normal mood Skin exam: Present: warm, dry, intact, normal color. Absent: rash Course Vital Signs 12/21/24 12/21/24 10:58 13:00 Temperature 97.4 F L Pulse Rate 70 75 Respiratory 18 18 Rate Blood Pressure 94/60 81/58 O2 Sat by Pulse 96 98 Oximetry EKG Findings - EKG Results: EKG: interpreted by SMITH (EKG reveals normal sinus rhythm with occasional PVCs. Ventricular rate 71 bpm, ID interval 187, QRS duration 93, QT/QTc 447/470) Medical Decision Making - Medical Decision Making Was pt. sent in by a medical professional or institution (, PA, [employer] INFORMATION CLERK, urgent care, hospital, or [facility]...) When possible be specific @ -No Did you speak to anyone other than the patient for history (EMS, parent, family, police, friend...)? What history was obtained from this source @ -No Did you review nursing and triage notes (agree or disagree)? Why? @ -I reviewed and agree with nursing and triage notes Were old charts reviewed (outside hosp., previous admission, EMS record, old EKG, old radiological studies, urgent care reports/EKG's, [facility] records)? Report findings @ -No old charts were reviewed Differential Diagnosis (chest pain, altered mental status, abdominal pain women, abdominal pain men, vaginal bleeding, weakness, fever, dyspnea, syncope, headache, dizziness, GI bleed, back pain, seizure, CVA, palpatations, mental health, musculoskeletal)? @ -Differential GI Bleed: Esophageal varices, aortoenteric fistula, Amber-Oseguera, gastritis, peptic ulcer disease, diverticulosis, inflammatory bowel disease, hemorrhoids, fissure, colitis, malignancy, Meckel's diverticulum, this is not meant to be an all-inclusive list. EKG interpreted by me (3pts min.). @ -As above X-rays interpreted by me (1pt min.). @ -Chest x-ray reveals no acute process CT interpreted by me (1pt min.). @ -CT brain reveals no acute intracranial process U/S interpreted by me (1pt. min.). @ -None done What testing was considered but not performed or refused? (CT, X-rays, U/S, labs)? Why? @ -None What meds were considered but not given or refused? Why? @ -None Did you discuss the management of the patient with other professionals (prof rodriguez i.e. , PA, [employer] INFORMATION CLERK, lab, RT, psych nurse, social psychologist, manager multicultural, teacher, philanthropy officer, case liner)? Give summary @ -I spoke to transfer team at [facility] who accepts transfer for upper GI bleed Was smoking cessation discussed for >3mins.? @ -No Was critical care preformed (if so, how long)? @ -No Were there social determinants of health that impacted care today? How? (Homelessness, low income, unemployed, alcoholism, drug addiction, transportation, low edu. Level, literacy, decrease access to med. care, care home, rehab)? @ -No Was there de-escalation of care discussed even if they declined (Discuss DNR or withdrawal of care, Hospice)? DNR status @ -No What co-morbidities impacted this encounter? (DM, HTN, Smoking, COPD, CAD, Cancer, CVA, ARF, Chemo, Hep., AIDS, mental health diagnosis, sleep apnea, morbid obesity)? @ -None Was patient admitted / discharged? Hospital course, mention meds given and route, prescriptions, significant lab abnormalities, going to OR and other p ertinent info. @ -Transferred. This is an 84-year-old female presenting for weakness/dizziness x 3 days with associated dark, tarry stools. Denies abdominal pain. Initial blood pressure is 94/60, heart rate 70 bpm. Rectal examination remarkable for large amount of black, tarry stool. Patient was provided with IV fluid bolus. 2 large-bore IVs established. Hemoglobin is 7.7, significantly decreased compared to a value of 12.6 on November 22. Platelet count 245. BUN 92, creatinine 1.68. Stool occult is positive. 1 unit of packed red blood cells were ordered. Results were discussed with patient and family members. I spoke to transfer team at [facility] who accepts transfer for upper GI bleed as we do currently not have GI on service. Case was discussed with my ED attending Dr. Brooks. Undiagnosed new problem with uncertain prognosis? @ -No Drug Therapy requiring intensive monitoring for toxicity (Heparin, Nitro, Insulin, Cardizem)? @ -No Were any procedures done? @ -No Diagnosis/symptom? @ -Upper GI bleed Acute, or Chronic, or Acute on Chronic? @ -Acute Uncomplicated (without systemic symptoms) or Complicated (systemic symptoms)? @ -Complicated Side effects of treatment? @ -No Exacerbation, Progression, or Severe Exacerbation? @ -No Poses a threat to life or bodily function? How? (Chest pain, USA, ID, pneumonia, PE, COPD, DKA, ARF, appy, cholecystitis, CVA, Diverticulitis, Homicidal, Suicidal, threat to staff... and all critical care pts) @ -Yes - Lab Data Result diagrams: 12/21/24 11:34 12/21/24 11:34 Lab Results 12/21/24 12/21/24 12/21/24 Range/Units 11:25 11:34 11:34 WBC 12.0 H (3.8-10.6) k/uL RBC 2.59 L (3.80-5.40) m/uL Hgb 7.7 L (11.4-16.0) gm/dL Hct 24.2 L (34.0-46.0) % MCV 93.6 (80.0-100.0) fL MCH 29.6 (25.0-35.0) pg MCHC 31.6 (31.0-37.0) g/dL RDW 14.0 (11.5-15.5) % Plt Count 245 (150-450) k/uL MPV 8.8 Neutrophils % 77 % Lymphocytes % 15 % Monocytes % 5 % Eosinophils % 1 % Basophils % 0 % Neutrophils # 9.3 H (1.3-7.7) k/uL Lymphocytes # 1.8 (1.0-4.8) k/uL Monocytes # 0.6 (0-1.0) k/uL Eosinophils # 0.1 (0-0.7) k/uL Basophils # 0.0 (0-0.2) k/uL PT 11.2 (10.0-12.5) sec INR 1.0 (<1.2) APTT 23.1 (22.0-30.0) sec Sodium (137-145) mmol/L Potassium (3.5-5.1) mmol/L Chloride (98-107) mmol/L Carbon Dioxide (22-30) mmol/L Anion Gap mmol/L BUN (7-17) mg/dL Creatinine (0.52-1.04) mg/dL Est GFR (CKD-EPI)AfAm (>60 ml/min/1.73 sqM) Est GFR (CKD-EPI)NonAf (>60 ml/min/1.73 sqM) Glucose (74-99) mg/dL Lactic Ac Sepsis Rflx Plasma Lactic Acid Pilo 2.1 H* (0.7-2.0) mmol/L Calcium (8.4-10.2) mg/dL Total Bilirubin (0.2-1.3) mg/dL AST (14-36) U/L ALT (4-34) U/L Alkaline Phosphatase (38-126) U/L Troponin I (0.000-0.034) ng/mL Total Protein (6.3-8.2) g/dL Albumin (3.5-5.0) g/dL Stool Occult Blood (Negative) Influenza Type A (PCR) (Not Detectd) Influenza Type B (PCR) (Not Detectd) RSV (PCR) (Not Detectd) SARS-CoV-2 (PCR) (Not Detectd) 12/21/24 12/21/24 12/21/24 Range/Units 11:34 11:34 11:34 WBC (3.8-10.6) k/uL RBC (3.80-5.40) m/uL Hgb (11.4-16.0) gm/dL Hct (34.0-46.0) % MCV (80.0-100.0) fL MCH (25.0-35.0) pg MCHC (31.0-37.0) g/dL RDW (11.5-15.5) % Plt Count (150-450) k/uL MPV Neutrophils % % Lymphocytes % % Monocytes % % Eosinophils % % Basophils % % Neutrophils # (1.3-7.7) k/uL Lymphocytes # (1.0-4.8) k/uL Monocytes # (0-1.0) k/uL Eosinophils # (0-0.7) k/uL Basophils # (0-0.2) k/uL PT (10.0-12.5) sec INR (<1.2) APTT (22.0-30.0) sec Sodium 136 L (137-145) mmol/L Potassium 5.1 (3.5-5.1) mmol/L Chloride 105 (98-107) mmol/L Carbon Dioxide 17 L (22-30) mmol/L Anion Gap 14 mmol/L BUN 92 H (7-17) mg/dL Creatinine 1.68 H (0.52-1.04) mg/dL Est GFR (CKD-EPI)AfAm 32 (>60 ml/min/1.73 sqM) Est GFR (CKD-EPI)NonAf 28 (>60 ml/min/1.73 sqM) Glucose 126 H (74-99) mg/dL Lactic Ac Sepsis Rflx Plasma Lactic Acid Pilo (0.7-2.0) mmol/L Calcium 9.4 (8.4-10.2) mg/dL Total Bilirubin 0.7 (0.2-1.3) mg/dL AST 32 (14-36) U/L ALT 12 (4-34) U/L Alkaline Phosphatase 40 (38-126) U/L Troponin I <0.012 (0.000-0.034) ng/mL Total Protein 6.2 L (6.3-8.2) g/dL Albumin 3.8 (3.5-5.0) g/dL Stool Occult Blood (Negative) Influenza Type A (PCR) Not Detected (Not Detectd) Influenza Type B (PCR) Not Detected (Not Detectd) RSV (PCR) Not Detected (Not Detectd) SARS-CoV-2 (PCR) Not Detected (Not Detectd) 12/21/24 12/21/24 Range/Units 11:56 13:11 WBC (3.8-10.6) k/uL RBC (3.80-5.40) m/uL Hgb (11.4-16.0) gm/dL Hct (34.0-46.0) % MCV (80.0-100.0) fL MCH (25.0-35.0) pg MCHC (31.0-37.0) g/dL RDW (11.5-15.5) % Plt Count (150-450) k/uL MPV Neutrophils % % Lymphocytes % % Monocytes % % Eosinophils % % Basophils % % Neutrophils # (1.3-7.7) k/uL Lymphocytes # (1.0-4.8) k/uL Monocytes # (0-1.0) k/uL Eosinophils # (0-0.7) k/uL Basophils # (0-0.2) k/uL PT (10.0-12.5) sec INR (<1.2) APTT (22.0-30.0) sec Sodium (137-145) mmol/L Potassium (3.5-5.1) mmol/L Chloride (98-107) mmol/L Carbon Dioxide (22-30) mmol/L Anion Gap mmol/L BUN (7-17) mg/dL Creatinine (0.52-1.04) mg/dL Est GFR (CKD-EPI)AfAm (>60 ml/min/1.73 sqM) Est GFR (CKD-EPI)NonAf (>60 ml/min/1.73 sqM) Glucose (74-99) mg/dL Lactic Ac Sepsis Rflx Y Plasma Lactic Acid Pilo (0.7-2.0) mmol/L Calcium (8.4-10.2) mg/dL Total Bilirubin (0.2-1.3) mg/dL AST (14-36) U/L ALT (4-34) U/L Alkaline Phosphatase (38-126) U/L Troponin I (0.000-0.034) ng/mL Total Protein (6.3-8.2) g/dL Albumin (3.5-5.0) g/dL Stool Occult Blood Positive H (Negative) Influenza Type A (PCR) (Not Detectd) Influenza Type B (PCR) (Not Detectd) RSV (PCR) (Not Detectd) SARS-CoV-2 (PCR) (Not Detectd) Disposition Clinical Impression: Upper GI bleed Disposition: OTHER INSTITUTION NOT DEFINED Referrals: None,Stated [REFERRING] - 1-2 days Time of Disposition: 14:19 - Out of Hospital Transfer - Req. Specs Out of Hospital Transfer - Requested Specifics: Other Emergency Center ([facility]
--- NOTE | 2024-12-21 11:56 | XR ---
EXAMINATION TYPE: XR chest 2V DATE OF EXAM: 12/21/2024 CLINICAL INDICATION: Female, 84 years old with history of weakness/dizziness, TECHNIQUE: Frontal and lateral views of the chest are obtained. COMPARISON: Chest x-ray April 20, 2024 FINDINGS: There is elevated left hemidiaphragm. Overlying Sternal wires and mediastinal clips are re demonstrated. Heart size upper limits of normal with single lead pacemaker/defibrillator redemonstra phil. Lungs remain clear. The osseous structures are intact. IMPRESSION: No acute cardiopulmonary process. [facility], , 12/21/2024 11:54 AM
[2024-12-21 12:02] LABS: ALT 12 U/L (4-34); African American GFR (CKD) 32 (>60 ml/min/1.73 sqM); Anion Gap 14 mmol/L; Blood Urea Nitrogen 92 mg/dL (7-17); Calcium 9.4 mg/dL (8.4-10.2); Carbon Dioxide 17 mmol/L (22-30); Chloride 105 mmol/L (98-107); Glucose 126 mg/dL (74-99); Non-African American GFR(CKD) 28 (>60 ml/min/1.73 sqM); Partial Thromboplastin Time 23.1 sec (22.0-30.0); Prothrombin Time 11.2 sec (10.0-12.5); Sodium 136 mmol/L (137-145); Total Bilirubin 0.7 mg/dL (0.2-1.3)
[2024-12-21 12:13] LABS: AST 32 U/L (14-36); Albumin 3.8 g/dL (3.5-5.0); Alkaline Phosphatase 40 U/L (38-126); Potassium 5.1 mmol/L (3.5-5.1); Total Protein 6.2 g/dL (6.3-8.2)
[2024-12-21 12:16] LABS: Basophils % (A) 0 %; Eosinophils # (A) 0.1 k/uL (0-0.7); Eosinophils % (A) 1 %; HCT 24.2 % (34.0-46.0); HGB 7.7 gm/dL (11.4-16.0); Lymphocytes # (A) 1.8 k/uL (1.0-4.8); Lymphocytes % (A) 15 %; MCH 29.6 pg (25.0-35.0); MCHC 31.6 g/dL (31.0-37.0); MCV 93.6 fL (80.0-100.0); Mean Platelet Volume 8.8; Monocytes # (A) 0.6 k/uL (0-1.0); Monocytes % (A) 5 %; Neutrophils # (A) 9.3 k/uL (1.3-7.7); Neutrophils % (A) 77 %; Platelet Count 245 k/uL (150-450); RBC 2.59 m/uL (3.80-5.40)
--- NOTE | 2024-12-21 12:22 | CT ---
EXAMINATION TYPE: CT brain wo con DATE OF EXAM: 12/21/2024 COMPARISON: NONE CLINICAL INDICATION: Female, 84 years old with history of dizziness, weakness, Dizziness, Weakness. TECHNIQUE: CT scan of the head is performed without contrast. CT DLP: 1170.4 mGycm. Automated Exposure Control for Dose Reduction was Utilized. FINDINGS: There is no acute intracranial hemorrhage or midline shift identified. There is mild-to-m oderate diffuse ventricular and sulcal prominence consistent with diffuse age-related cerebral atroph y. There is moderate low-attenuation in the periventricular white matter most likely consistent with chronic small vessel ischemic change. Bilateral aphakia is seen. There is focal mild to moderate muc osal thickening involving the posterior left maxillary sinus. Remainder of the paranasal sinuses ar e clear. No suspicious opacification mastoid air cells. IMPRESSION: No acute intracranial hemorrhage or midline shift. [facility], , 12/21/2024 12:19 PM
[2024-12-21 13:06] LABS: Influenza A Not Detected (Not Detectd); Influenza B Not Detected (Not Detectd); RSV Not Detected (Not Detectd)
[2024-12-21 15:22] VITALS: TEMP 97.8
[2024-12-21 15:38] VITALS: BP 100/68; PULSE 92
== END 2024-12-21 15:49 | disposition other institution (70) ==
LOC: EC 10:56
DX: K92.2 Gastrointestinal hemorrhage, unspecified (principal); Z88.5 Allergy status to narcotic agent; Z87.891 Personal history of nicotine dependence; Z11.52 Encounter for screening for COVID-19
CPT/HCPCS: 96360 ×2; 96361 ×2; 99285 ×2; 36430 ×2; 36415; 93005; 86900; 86901; 80053; 83605; 84484; 85025; 85610; 85730; 86850; 86920; 82272; 87636; 71046; 70450; P9016